=== PATIENT | female | born 1950 | race Caucasian/White ===

== ENCOUNTER → 2017-03-08 | Outpatient (RCR) | payer OTHER | END | disposition home or self-care (01) | LOC: PTY 02-07 16:40 | DX: M54.2 Cervicalgia (principal); G89.29 Other chronic pain | CPT/HCPCS: 97035; 97110; 97140; 97162; G0283 ==

== ENCOUNTER → 2017-04-07 | Outpatient (RCR) | payer OTHER | END | disposition home or self-care (01) | LOC: PTY 03-28 16:03 | DX: G89.29 Other chronic pain (principal); M54.2 Cervicalgia; M79.7 Fibromyalgia; M81.0 Age-related osteoporosis without current pathological fracture; M19.90 Unspecified osteoarthritis, unspecified site | CPT/HCPCS: 97110; 97140; G0283 ==

== ENCOUNTER 2017-05-05 15:30 | Outpatient (RCR) | payer OTHER | END 2017-05-08 | disposition home or self-care (01) | LOC: PTY 15:30 | DX: M54.2 Cervicalgia (principal); G89.29 Other chronic pain | CPT/HCPCS: 97110; 97140; G0283 ==

== ENCOUNTER 2017-05-24 14:55 | Outpatient (RCR) | payer OTHER | END 2017-06-08 | disposition home or self-care (01) | LOC: PTY 14:55 | DX: M54.2 Cervicalgia (principal); G89.29 Other chronic pain | CPT/HCPCS: 97110; 97140; G0283 ==

== ENCOUNTER 2017-08-22 15:00 | Outpatient (RCR) | payer OTHER | END 2017-09-05 | disposition home or self-care (01) | LOC: PTY 15:00 | DX: M79.671 Pain in right foot (principal); M79.672 Pain in left foot ==

== ENCOUNTER 2017-09-07 13:50 | Outpatient (RCR) | payer OTHER | END 2017-10-06 | disposition home or self-care (01) | LOC: PTY 13:50 | DX: M79.1 Myalgia (principal); M79.7 Fibromyalgia ==

== ENCOUNTER 2017-09-12 13:00 | Outpatient (RCR) | payer OTHER | END 2017-10-06 | disposition home or self-care (01) | LOC: PTY 13:00 | DX: M79.671 Pain in right foot (principal); M79.672 Pain in left foot ==

== ENCOUNTER 2017-10-12 12:50 | Outpatient (RCR) | payer OTHER | END 2017-11-05 | disposition home or self-care (01) | LOC: PTY 12:50 | DX: M79.1 Myalgia (principal); M79.7 Fibromyalgia ==

== ENCOUNTER 2017-11-07 12:40 | Outpatient (RCR) | payer OTHER | END 2017-12-06 | disposition home or self-care (01) | LOC: PTY 12:40 | DX: M79.7 Fibromyalgia (principal) ==